=== PATIENT | female | born 1990 | race Asian ===

== ENCOUNTER 2016-03-31 12:46 | Observation (INO) | payer SELFPAY ==
[2016-03-31] MEDS ORDERED: NORMAL SALINE 1000 ML 1,000 ML IV PRN (13:26)
[2016-03-31] MEDS ORDERED: ONDANSETRON 4 MG TAB.RAPDIS PO ONE (13:26)
--- NOTE | 2016-03-31 13:26 | ER Document Report ---
ED Medical Screen (RME) - General Stated Complaint: VOMITING Notes: patient is a 25 year old female with abdominal pain since this morning emesis x4 took phenergan at home and shes been vomiting it back up abdominal pain located bilaterally lower pelvic pain currently on her menstrual period no vaginal d/c no urinary symptoms I have greeted and performed a rapid initial assessment of this patient. A comprehensive ED assessment and evaluation of the patient, analysis of test results and completion of the medical decision making process will be conducted by additional ED providers. TRAVEL OUTSIDE OF THE [place] IN LAST 30 DAYS: No - Related Data Allergies/Adverse Reactions: amoxicillin Allergy (Verified 03/31/16 13:24) Past Medical History Past Surgical History: Reports: Hx Adenoidectomy, Hx Tonsillectomy - Immunizations Immunizations up to date: Yes Hx Diphtheria, Pertussis, Tetanus Vaccination: Yes
[2016-03-31 14:01] LABS: HEMATOCRIT 40.1 % (36.0-47.0); HEMOGLOBIN 13.3 g/dL (12.0-15.5); HGB HCT DIFFERENCE -0.2; MEAN CORPUSCULAR HEMOGLOBIN 29.1 pg (27.0-33.4); MEAN CORPUSCULAR HGB CONC 33.1 g/dL (32.0-36.0); MEAN CORPUSCULAR VOLUME 88 fl (80-97); RED BLOOD COUNT 4.55 10^6/uL (3.72-5.28); RED CELL DISTRIBUTION WIDTH 12.5 % (11.5-14.0); WHITE BLOOD COUNT 17.6 10^3/uL (4.0-10.5)
[2016-03-31 14:22] LABS: ALANINE AMINOTRANSFERASE 25 U/L (9-52); ALBUMIN 4.8 g/dL (3.5-5.0); ALKALINE PHOSPHATASE 69 U/L (38-126); ANION GAP 14 (5-19); ASPARTATE AMINO TRANSFERASE 16 U/L (14-36); BILIRUBIN,TOTAL 0.7 mg/dL (0.2-1.3); BLOOD UREA NITROGEN 9 mg/dL (7-20); CALCIUM 9.6 mg/dL (8.4-10.2); CARBON DIOXIDE 25 mmol/L (22-30); CHLORIDE 103 mmol/L (98-107); CREATININE RESULT 0.76 mg/dL (0.52-1.25); GLUCOSE 85 mg/dL (75-110); LIPASE 46.8 U/L (23-300); SODIUM 141.5 mmol/L (137-145); TOTAL PROTEIN 8.2 g/dL (6.3-8.2)
[2016-03-31 14:25] LABS: BASOPHILS % (MANUAL) 0 % (0-2); EOSINOPHILS % (MANUAL) 0 % (0-6); LYMPHOCYTES % (MANUAL) 4 % (13-45); TOTAL CELLS COUNTED 100
[2016-03-31 14:26] LABS: PLATELET CLUMPS PRESENT; RBC MORPHOLOGY COMMENT NORMO-CYTIC/CHROMIC; TOXIC GRANULATION SLIGHT
[2016-03-31] MEDS ORDERED: ONDANSETRON HCL INJ/PF 4 MG/2 ML SDV IV ONE ×2 (17:07→20:20)
[2016-03-31] MEDS ORDERED: NORMAL SALINE 1000 ML 1,000 ML IV ONE (18:25)
[2016-03-31] MEDS ORDERED: CEFTRIAXONE 1 GM/D5W RTU 50 ML IV ONE (18:29)
--- NOTE | 2016-03-31 18:36 | ER Document Report ---
ED General - General Chief Complaint: Abdominal Pain Stated Complaint: VOMITING Notes: Patient says that she's been running a fever since last night. Also noted a sore throat last night. She had chills all night long. Started vomiting this morning about 10 AM and has vomited 5 or 6 times, not relieved by Zofran and Phenergan that she had at home. Patient says that she has not had any UTI symptoms. On her menstrual cycle since Sunday. On no control. Denies any medications. No surgeries. TRAVEL OUTSIDE OF THE [place] IN LAST 30 DAYS: No - Related Data Allergies/Adverse Reactions: amoxicillin Allergy (Verified 03/31/16 13:24) Past Medical History - Social History Smoking Status: Never Smoker Chew tobacco use (# tins/day): No Frequency of alcohol use: None Drug Abuse: None Family History: Reviewed & Not Pertinent Patient has suicidal ideation: No Patient has homicidal ideation: No Past Surgical History: Reports: Hx Adenoidectomy, Hx Tonsillectomy - Immunizations Immunizations up to date: Yes Hx Diphtheria, Pertussis, Tetanus Vaccination: Yes Review of Systems - Review of Systems Notes: REVIEW OF SYSTEMS: CONSTITUTIONAL : Fever as noted in history of present illness. EENT: Complains of throat pain. Denies eye, ear, nose or mouth pain or other symptoms. CARDIOVASCULAR: Denies chest pain. RESPIRATORY: Denies cough, chest congestion, or shortness of breath. GASTROINTESTINAL: Has some lower abdominal pain with nausea nausea, vomiting, but no diarrhea. GENITOURINARY: Denies difficulty or painful urinating, urinary frequency, blood in urine. MUSCULOSKELETAL: Denies back or neck pain. Denies joint pain or swelling. SKIN: Denies rash or skin lesions. NEUROLOGICAL: Denies LOC or altered mental status. Denies headache. Denies sensory loss or motor deficits. ALL OTHER SYSTEMS REVIEWED AND NEGATIVE. Physical Exam - Vital signs Vitals: Temp Pulse Resp BP Pulse Ox 97.9 F 120 H 16 105/84 100 03/31/16 13:24 03/31/16 13:24 03/31/16 13:24 03/31/16 13:24 03/31/16 13:24 Interpretation: Normal, Tachycardic - Notes Notes: PHYSICAL EXAMINATION: GENERAL: Appears uncomfortable to move. HEAD: Atraumatic, normocephalic. ENT: Generalized erythema of the entire posterior oropharynx, but without exudates. Moist mucous membranes. NECK: Normal range of motion, supple. LUNGS: Breath sounds clear and equal bilaterally. HEART: Regular rate and rhythm without murmurs. ABDOMEN: Soft, mild tenderness in the lower pelvic region. BACK: No tenderness throughout entire back. EXTREMITIES: Normal range of motion without pain. NEUROLOGICAL: Normal speech, normal gait. Normal sensory, motor, and reflex exams. Awake, alert, and oriented x3. Cranial nerves normal. SKIN: Warm, dry, no rashes. - Genitourinary External exam: Normal Speculum exam: Cervix closed, Vaginal discharge - Minimal. No: Lesions Vaginal bleeding: None Bimanuel exam: Adnexal tenderness - Bilateral. No: Cervical motion tender, Adnexal mass, Uterus enlarged - But tender to palpation. Course - Re-evaluation Re-evalutation: 03/31/16 18:34 When the patient's lab results began to come in, her urine test was noted to be positive. Patient had told me when I interviewed her that she was on her menstrual cycle now. On questioning her further, she says that she began her cycle Sunday and it's continuing now. She also relates that she underwent a therapeutic , being given medications at 6 weeks gestation, 3 weeks ago today. She said she had heavy bleeding and passing a lot of stuff for about 4 days and then it stopped. Patient has a card with her showing her blood type to be O+. G2, P1, A1. 03/31/16 20:14 Patient is still nauseated at this time, although, not vomiting. Spoke with Dr. Rod, telecommunications repairer for [employer] who agrees to admit the patient for observation and IV fluids and antibiotics until she is able to keep down fluids and medications as an outpatient. - Vital Signs Vital signs: Temp Pulse Resp BP Pulse Ox 97.9 F 120 H 16 105/84 100 03/31/16 13:24 03/31/16 13:24 03/31/16 13:24 03/31/16 13:24 03/31/16 13:24 - Laboratory Result Diagrams: 03/31/16 13:37 03/31/16 13:37 Laboratory results interpreted by me: 03/31/16 03/31/16 03/31/16 13:37 13:37 13:37 WBC 17.6 H Seg Neuts % (Manual) 91 H Lymphocytes % (Manual) 4 L Abs Neuts (Manual) 16.0 H Beta HCG, Quant 25.56 H Urine Protein Urine Ketones Urine Ascorbic Acid Urine HCG, Qual POSITIVE H 03/31/16 18:05 WBC Seg Neuts % (Manual) Lymphocytes % (Manual) Abs Neuts (Manual) Beta HCG, Quant Urine Protein 30 H Urine Ketones 80 H Urine Ascorbic Acid 40 H Urine HCG, Qual - Diagnostic Test Radiology reviewed: Image reviewed, Reports reviewed Radiology results interpreted by me: 03/31/16 20:13 Ultrasound shows a 10 mm thickening of the endometrial stripe with hypervascularity in the upper body, fundal portion, possible retained products. Discharge - Discharge Clinical Impression: Pelvic pain, Retained products of conception Vomiting Qualifiers: Vomiting type: unspecified Vomiting Intractability: intractable Nausea presence : with nausea Qualified Code(s): R11.2 - Nausea with vomiting, unspecified Condition: Stable Disposition: ADMITTED OBSERVATION Admitting Provider: [facility] Admitted: Labor and Delivery - admit to second floor, please
[2016-03-31 18:43] LABS: ADD ON TESTING BLD IN LAB ACKNOWLEDGE
[2016-03-31 18:47] LABS: APPEARANCE,URINE SLIGHTLY-CLOUDY; BILIRUBIN,URINE NEGATIVE (NEGATIVE); GLUCOSE, URINE NEGATIVE (NEGATIVE); KETONES,URINE 80 mg/dL (NEGATIVE); LEUKOCYTE ESTERASE,URINE NEGATIVE (NEGATIVE); NITRITE,URINE NEGATIVE (NEGATIVE); PROTEIN,URINE 30 mg/dL (NEGATIVE); URINE SPECIFIC GRAVITY 1.031; UROBILINOGEN,URINE NEGATIVE mg/dL (<2.0)
[2016-03-31 20:50] LABS: CHLAM PCR NOT DETECTED (NOT DETECT)
[2016-04-01] MEDS ORDERED: RINGERS SOLUTION,LACTATED 1,000 ML IV PRN (01:02)
[2016-04-01] MEDS ORDERED: MORPHINE SULFATE 10 MG/ML INJ IV PRN (01:04)
--- NOTE | 2016-04-01 01:27 | PDOC H&P ---
History of Present Illness Admission Date/PCP: 03/31/16 20:37 Patient complains of: vomiting and fever History of Present Illness: HORTENCIA MERCER is a 25 year old female who presents after nausea and vomiting severly over past 24 hours. She reports history of elective at 6weeks gestation by pills given 3 weeks ago. She states she had 4 days of heavy bleeding with tissue and clot passage. Bleeding then stopped until 7 days ago when she thought she began a period. Bleeding is slightly heavy but not more than nl period. She c/o feeling as is febrile and lower abdominal cramping. She reports no urinary symptoms, vaginal discharge, diarrhea or constipation. She does report sore throat today. She is not taking control Past Medical History Gynecological Infection: No Medical History: None Past Surgical History Past Surgical History: Reports: Adenoidectomy, Tonsillectomy Social History Smoking Status: Never Smoker - Advance Directive Resuscitation Status: Full Code Family History Family History: Reviewed & Not Pertinent Parental Family History Reviewed: Yes Children Family History Reviewed: Yes Sibling(s) Family History Reviewed.: Yes Medication/Allergy Home Medications: No Home Medications 03/31/16 Allergies/Adverse Reactions: amoxicillin Allergy (Verified 03/31/16 13:24) Review of Systems Constitutional: PRESENT: as per HPI Eyes: PRESENT: as per HPI Ears: PRESENT: as per HPI Nose, Mouth, and Throat: PRESENT: as per HPI Breasts: PRESENT: as per HPI Cardiovascular: PRESENT: as per HPI Respiratory: PRESENT: as per HPI Gastrointestinal: PRESENT: as per HPI Genitourinary: PRESENT: as per HPI Musculoskeletal: PRESENT: as per HPI Integumentary: PRESENT: as per HPI Neurological: PRESENT: as per HPI Psychiatric: PRESENT: as per HPI Endocrine: PRESENT: as per HPI Hematologic/Lymphatic: PRESENT: as per HPI Allergic/Immunologic: PRESENT: as per HPI Physical Exam - Physical Exam Vital Signs: Temp Pulse Resp BP Pulse Ox 99.7 F 104 H 16 104/59 L 100 03/31/16 20:20 03/31/16 20:20 03/31/16 20:20 03/31/16 20:20 03/31/16 20:20 General appearance: PRESENT: no acute distress, cooperative - appears very tired Respiratory exam: PRESENT: clear to auscultation brennon Cardiovascular exam: PRESENT: RRR GI/Abdominal exam: PRESENT: normal bowel sounds, soft, tenderness - mild tenderness lower abdomen but no guarding ro rebound. ABSENT: distended, guarding, mass, organolmegaly, rebound Extremities exam: PRESENT: full ROM. ABSENT: calf tenderness, clubbing, pedal edema Result Impressions: Transvaginal US 03/31/16 18:32 IMPRESSION: Heterogeneous generalized endometrial 10 mm thickening with hypervascularity in the upper body -fundal portion, possible retained products. Assessment & Plan - Diagnosis (1) Dehydration, moderate Is this a current diagnosis for this admission?: YesPlan: intravenous fluids and antiemetics (2) Pelvic pain Is this a current diagnosis for this admission?: YesPlan: possible incomplete or septic . Intravenous antibiotics started. NPO until determine if need for D&C
[2016-04-01] MEDS: ONDANSETRON HCL INJ/PF 4 MG/2 ML SDV IV PRN ×2 (02:10→09:43)
[2016-04-01] MEDS: KETOROLAC TROMETHAMINE INJ/PF 30 MG/1 ML SDV IV PRN ×2 (02:51→09:37)
[2016-04-01] MEDS ORDERED: DIPHENHYDRAMINE HCL 50 MG/ML VIAL IV ONE (03:15)
[2016-04-01 09:10] VITALS: BP 112/58
[2016-04-01] MEDS ORDERED: DOXYCYCLINE HYCLATE INJ 100 MG VIAL IV SCH (10:00)
[2016-04-01] MEDS ORDERED: CEFTRIAXONE 1 GM/D5W RTU 1 GM/50 ML RTUPB IV SCH (10:00)
[2016-04-01] MEDS ORDERED: DOXYCYCLINE HYCLATE 100 MG in DEXTROSE 5%-WATER 250 ML IV SCH (10:00)
--- NOTE | 2016-04-01 11:00 | PDOC PROGRESS REPORT ---
Subjective Progress Note for:: 04/01/16 Subjective:: She has developed an upper resp tract infection now with a sore throat. Physical Exam - Physical Exam Vital Signs: Temp Pulse Resp BP Pulse Ox 97.6 F 75 16 112/58 L 100 04/01/16 09:00 04/01/16 09:00 04/01/16 09:00 04/01/16 09:00 04/01/16 09:00 Intake & Output 03/31/16 04/01/16 04/02/16 06:59 06:59 06:59 Output Total 600 Balance -600 General appearance: PRESENT: mild distress Head exam: PRESENT: atraumatic Eye exam: PRESENT: conjunctival injection Throat exam: PRESENT: tonsillar erythema Neck exam: PRESENT: tenderness GI/Abdominal exam: PRESENT: normal bowel sounds, soft. ABSENT: distended, guarding, mass, organolmegaly, rebound, tenderness Result Impressions: Transvaginal US 03/31/16 18:32 IMPRESSION: Heterogeneous generalized endometrial 10 mm thickening with hypervascularity in the upper body -fundal portion, possible retained products. Assessment & Plan - Diagnosis (1) Retained products of conception Is this a current diagnosis for this admission?: YesPlan: She may have small retained products of conception but also has an URI. This complicates the decision to take her to the or. Her quant and cbc are pending this morning.
[2016-04-01 11:23] LABS: ABSOLUTE EOSINOPHILS # (AUTO) 0.1 10^3/uL (0.0-0.6); ABSOLUTE LYMPHOCYTES (AUTO) 1.8 10^3/uL (0.5-4.7); ABSOLUTE MONOCYTES (AUTO) 1.3 10^3/uL (0.1-1.4); ABSOLUTE NEUT (AUTO) 9.9 10^3/uL (1.7-8.2); BASOPHILS % (AUTO) 0.2 % (0-2); EOSINOPHILS % (AUTO) 0.6 % (0-6); HEMATOCRIT 34.3 % (36.0-47.0); HEMOGLOBIN 11.5 g/dL (12.0-15.5); HGB HCT DIFFERENCE 0.2; LYMPHOCYTES % (AUTO) 13.7 % (13-45); MEAN CORPUSCULAR HEMOGLOBIN 29.6 pg (27.0-33.4); MEAN CORPUSCULAR HGB CONC 33.6 g/dL (32.0-36.0); MEAN CORPUSCULAR VOLUME 88 fl (80-97); RED CELL DISTRIBUTION WIDTH 12.4 % (11.5-14.0); SEGMENTED NEUTROPHILS % (AUTO) 75.5 % (42-78); WHITE BLOOD COUNT 13.1 10^3/uL (4.0-10.5)
--- NOTE | 2016-04-01 12:27 | PDOC DISCHARGE SUMMARY ---
General - Admit/Disc Date/PCP Admission Date/Primary Care Provider: 03/31/16 20:37 Discharge Date: 04/01/16 - Discharge Diagnosis (1) Retained products of conception Is this a current diagnosis for this admission?: Yes - Additional Information Resuscitation Status: Full Code Discharge Diet: Regular Discharge Activity: Balance Activity w/Rest, Pelvic Rest Home Medications: Doxycycline Hyclate [Vibramycin] 100 mg PO BID #20 capsule 04/01/16 History of Present Illness History of Present Illness: HORTENCIA MERCER is a 25 year old female Hospital Course Hospital Course: She has improved and no longer has pain bleeding or fever. She was offered a d and c but she would like to wait to see if things improve. We will see her back in the office this week and follow the test to negative. Physical Exam - Physical Exam Vital Signs: Temp Pulse Resp BP Pulse Ox 97.6 F 75 16 112/58 L 100 04/01/16 09:00 04/01/16 09:00 04/01/16 09:00 04/01/16 09:00 04/01/16 09:00 Intake & Output 03/31/16 04/01/16 04/02/16 06:59 06:59 06:59 Output Total 600 Balance -600 Result Laboratory Results: 04/01/16 11:09 04/01/16 04/01/16 11:09 11:09 WBC 13.1 H RBC 3.90 Hgb 11.5 L Hct 34.3 L MCV 88 MCH 29.6 MCHC 33.6 RDW 12.4 Plt Count 193 Seg Neutrophils % 75.5 Lymphocytes % 13.7 Monocytes % 10.0 Eosinophils % 0.6 Basophils % 0.2 Absolute Neutrophils 9.9 H Absolute Lymphocytes 1.8 Absolute Monocytes 1.3 Absolute Eosinophils 0.1 Absolute Basophils 0.0 Blood Type O POSITIVE Antibody Screen NEGATIVE Impressions: Transvaginal US 03/31/16 18:32 IMPRESSION: Heterogeneous generalized endometrial 10 mm thickening with hypervascularity in the upper body -fundal portion, possible retained products. Plan Discharge Plan: Followup in our office this week. Finish the doxycycline. Time Spent: Greater than 30 Minutes - discussed option
== END 2016-04-01 13:18 | disposition home or self-care (01) ==
LOC: ER 12:46 → EH 20:37 → 2S 04-01 00:11
PROVIDERS: ADMIT Obstetrics & Gynecology; ATTEND Obstetrics & Gynecology
DX: O03.39 Incomplete spontaneous abortion with other complications (principal); R10.9 Unspecified abdominal pain; R50.9 Fever, unspecified; R11.2 Nausea with vomiting, unspecified; E86.0 Dehydration
CPT/HCPCS: 96376; 99285; 96361; 96375; 96365; 86900; 86901; 36415 ×2; 87040; 87070 ×2; 87086; 87205; 87210; 86850; 87880; 84702 ×2; 83690; 85025 ×2; 81025; 87088; 80053; 81001; 87186; 87491; 87591; 87804; 76830; G0378 ×2; J1200; J3490; J1885; J2405 ×2; J7060; J7030; J0696